=== PATIENT | female | born 1990 | race Caucasian/White ===

== ENCOUNTER → 2017-04-18 | Outpatient (CLI) | payer BC ==
[2015-05-25 13:03] VITALS: BP 118/77
--- NOTE | 2017-04-19 08:21 | MRI ---
MRI SPINE LUMBAR WITHOUT CONTRAST CLINICAL HISTORY: 26-year-old female with history of prior discectomy with chronic low back pain and radicular symptoms. COMPARISON: MR lumbar spine 06/17/2015. Technique: Multiplanar, multisequence MRI images of the lumbar spine were obtained without the admin istration of contrast. FINDINGS: The most caudad, fully-formed intervertebral disc will be labeled L5-S1 for the purpose of this dictation and in keeping with prior imaging. Straightening of the lumbar lordosis as imaged. Ali gnment is maintained. Schmorl's node superior endplate L1 with remaining vertebral body heights prese rved. Mild loss of disc space L5-S1. There is loss of disc signal L4-S1. Type 2 endplate changes L5-S 1 with the remaining vertebral marrow signal unremarkable. Cord signal is normal. The conus medullari s is normal in signal characteristics and morphology and terminates at the L2 level. T11-T12: No neural foraminal or central canal stenosis. T12-L1: No central canal or neural foraminal stenosis. L1-L2: Mild facet arthropathy and small symmetric disc bulge without central canal or neural foramina l stenosis. L2-L3: Mild facet arthropathy and small symmetric disc bulge without central canal or neural foramina l stenosis. L3-L4: Moderate disc bulge and mild facet arthropathy without central canal or neural foraminal steno sis. L4-L5: Large mildly asymmetric disc bulge with a left foraminal component. Mild facet arthropathy. Mo derate to severe bilateral subarticular recess stenosis without foraminal stenosis. Central canal is widely patent. L5-S1: Large left central disc protrusion with inferior uncovering that produces moderate to severe l eft subarticular recess stenosis and engages the transiting left S1 nerve root with flattening of the ventral dorsal aspect. No significant neural foraminal stenosis with central canal remaining widely patent. This is superimposed upon a large disc bulge with mild facet arthropathy. Postsurgical changes within the paraspinous musculature at L4-L5. Remaining paraspinous soft tissues are unremarkable. IMPRESSION: 1. Multilevel disc degeneration and spondyloarthropathy most severe at L5-S1. 2. See level by level descriptions above. Reported By:
== END ==
LOC: RAD 15:57
PROVIDERS: ATTEND Nurse Practitioner Family
DX: M51.26 Other intervertebral disc displacement, lumbar region (principal); M54.16 Radiculopathy, lumbar region; M54.17 Radiculopathy, lumbosacral region
CPT/HCPCS: 72148